=== PATIENT | female | born 2000 | race African-American/Black ===

== ENCOUNTER 2021-04-17 16:45 | Emergency (ER) | payer BC ==
[~2021-04-17] VITALS: Ht 167.6 cm; Wt 54.4 kg
[2021-04-17 17:00] VITALS: BP 115/62
--- NOTE | 2021-04-17 17:06 | NUR ---
BIB SELF C/O VAGINAL SWELLING AND DISCHARGE. RATES VAGINAL AREA PAIN 3/10. WILL CONTINUE TO MONITOR THE PATIENT.
[2021-04-17] MEDS ORDERED: METR-147 PO (17:16)
[2021-04-17] MEDS ORDERED: METRONIDAZOLE 500 MG TABLET ONE (17:30)
[2021-04-17] MEDS ORDERED: METRONIDAZOLE 500 MG TABLET PO ONE (17:30)
== END 2021-04-17 17:39 | disposition home or self-care (01) ==
LOC: ER 16:53
DX: N76.0 Acute vaginitis (principal)